=== PATIENT | male | born 1995 | race Two or more races ===

== ENCOUNTER 2016-10-03 19:21 | Emergency (ER) | payer OTHER ==
[2016-10-03 19:35] VITALS: RESP 16
--- NOTE | 2016-10-03 22:14 | EDPHY ---
H & P Stated Complaint: Back pain after falling on back skiing 3 days ago. Time Seen by Provider: 10/03/16 19:47 HPI/ROS: Chief complaint: Back pain after fall History of present illness: This is a 20-year-old male who presents to the emergency department for evaluation of back pain after sustaining a fall. Patient fell 3 days ago while skiing. He fell onto his back. Since then he has had pain in the mid and lower back, primarily on the left. Worse with movement, better with rest. Patient denies other associated signs or symptoms including no report of trauma or pain in the head, neck, chest, abdomen, pelvis or extremities. Further no report of neurologic symptoms such as paresthesias, weakness or paralysis, bowel or bladder dysfunction. No other complaints. Review of systems: A 10 point review of systems was obtained and other than described above was negative - Personal History Current Tetanus/Diphtheria Vaccine: Yes Tetanus Vaccine Date: 2015 - Medical/Surgical History Hx Asthma: No Hx Chronic Respiratory Disease: No Hx Diabetes: No Hx Cardiac Disease: No Hx Renal Disease: No Hx Cirrhosis: No Hx Alcoholism: No Hx HIV/AIDS: No Hx Splenectomy or Spleen Trauma: No Other PMH: ORIF R forearm, asthmatic as child - Social History Smoking Status: Never smoked - Physical Exam Exam: General Appearance: Alert, nontoxic Eyes: PERRLA ENT: No hemotympanum, no bales sign, no raccoon eyes Respiratory: Lungs clear to auscultation bilaterally Cardiac: Regular rate and rhythm. Gastrointestinal: Bowel sounds normal. Abdomen is soft, nondistended, nontender Neurological: Alert and oriented x4. Cranial nerves 2-12 grossly intact. Strength and sensation intact and symmetrical. Patient ambulating without difficulty. Skin: No lesions consistent with trauma noted. Musculoskeletal: Head is normocephalic, atraumatic. The cervical spine and paraspinal region are nontender to palpation. No crepitus, bony deformity or step-off appreciated. There is some discomfort in the mid thoracic region both midline and over the left paraspinal muscles. However no specific point tenderness, no crepitus, bony deformity or step-off. The lumbar spine itself is nontender to palpation without crepitus, bony deformity or step-off. There is tenderness over the left lumbar paraspinal muscles. Chest wall intact palpation. Pelvis stable to rocking motion. Patient moving all extremities without difficulty. Constitutional: Initial Vital Signs Temperature (C) 36.9 C 10/03/16 19:29 Heart Rate 67 10/03/16 19:29 Respiratory Rate 16 10/03/16 19:29 Blood Pressure 136/79 H 10/03/16 19:29 O2 Sat (%) 97 10/03/16 19:29 O2 Delivery Mode Room Air Allergies/Adverse Reactions: nut - unspecified Allergy (Intermediate, Verified 10/03/16 19:36) Itching seafood Allergy (Unknown, Uncoded 10/03/16 19:36) Home Medications: Medication Instructions Recorded Cyclobenzaprine [Flexeril 10 MG 10 mg PO TID PRN #15 tab 10/03/16 (*)] [place] [facility] 10/03/16 Medical Decision Making - Diagnostics Imaging: Thoracic spine x-ray negative for acute findings Lumbar spine x-ray with questionable L1 wedge fracture versus congenital anomaly ED Course/Re-evaluation: Patient is discussed with my secondary supervising physician Dr. Grace Montano. Patient presents to the emergency department for back pain that he has had for the last 3 days after falling while skiing. He has been ambulatory since then. On presentation he is nontoxic. Physical exam reveals pain primarily along the left paraspinal muscles. X-ray of the thoracic spine negative. Questionable wedge fracture at L1 on the lumbar spine although this is also likely congenital. I have assessed this patient on multiple occasions and he has no tenderness to palpation over L1. I do not believe this is acute. Urinalysis is obtained, it is dipped in the emergency room, talking with the nurse he thinks it may be tracely positive for blood. Given that patient is nontoxic, that his vital signs are stable and that it has been 3 days that this needs to be further pursued in the emergency room with imaging studies. Patient is discharged home. He is asked to follow up with a primary care doctor for recheck. Home care is discussed. Strict return precautions are given. Patient voiced understanding and agreement with plan. Differential Diagnosis: Included but not limited to contusion, sprain or strain, bony fracture, herniated intervertebral disc, spinal cord injury, retroperitoneal injury - Data Points Medications Given: Discontinued Medications Hydrocodone Bitart/Acetaminophen (Bergoo 5/325mg Prepack#6) 1 btl TAKEHOME EDNOW ONE Stop: 10/03/16 22:19 Last Admin: 10/03/16 22:26 Dose: 1 btl Departure - Departure Disposition: Home, Routine, Self-Care Clinical Impression: Hematuria Back pain Qualifiers: Back pain location: low back pain Chronicity: acute Back pain laterality: left Sciatica presence: without sciatica Qualified Code(s): M54.5 - Low back pain Condition: Good Instructions: Hydrocodone/Acetaminophen (By mouth), Back Pain (ED) Additional Instructions: Follow-up with primary care doctor and a spine doctor for recheck Please have a primary care doctor recheck your urine to make sure there is no blood in it If symptoms worsen or new symptoms develop return to the emergency room for recheck Referrals: NONE *PRIMARY CARE P,. [Primary Care Provider] - As per Instructions [facility],. [Clinic] - As per Instructions Godwin Britton MD [Medical Doctor] - As per Instructions Prescriptions: Cyclobenzaprine [Flexeril 10 MG (*)] 10 mg PO TID PRN #15 tab PRN Reason: Spasms
[2016-10-03] MEDS ORDERED: HYDROCOD/APAP 5/325 PREPACK#6 BTL TAKEHOME ONE ×2 (22:18→22:24)
[2016-10-03 22:37] VITALS: BP 128/78; PULSE 76; TEMP 98.6; O2SAT 96
== END 2016-10-03 22:37 | disposition home or self-care (01) ==
DX: S39.92XA Unspecified injury of lower back, initial encounter (principal); R31.9 Hematuria, unspecified; V00.321A Fall from snow-skis, initial encounter; Y99.8 Other external cause status; Y93.23 Activity, snow (alpine) (downhill) skiing, snowboarding, sledding, tobogganing and snow tubing